=== PATIENT | female | born 1990 ===

== ENCOUNTER 2016-11-23 14:23 | Emergency (ER) | payer MEDICAID ==
[~2016-11-23] VITALS: Ht 162.6 cm; Wt 47.5 kg
[2016-11-23] MEDS ORDERED: ALBU8HFA IH (14:27)
[2016-11-23] MEDS ORDERED: IBUPROFEN 600 MG TABLET PO ONE (15:30)
[2016-11-23] MEDS ORDERED: PROPARACAINE HCL 0.5% 15 ML OPHTHALMIC SOLUTION OD ONE (15:30)
[2016-11-23] MEDS ORDERED: LORATADINE 10 MG TABLET PO ONE (15:45)
[2016-11-23 16:26] VITALS: BP 122/79
== END 2016-11-23 16:32 | disposition home or self-care (01) ==
LOC: EMS 14:25
DX: H16.001 Unspecified corneal ulcer, right eye (principal); F17.210 Nicotine dependence, cigarettes, uncomplicated
CPT/HCPCS: 99284